=== PATIENT | male | born 1985 | race African-American/Black ===

== ENCOUNTER 2017-04-17 20:32 | Emergency (ER) | payer SELFPAY ==
[~2017-04-17] VITALS: Ht 175.3 cm; Wt 100.0 kg
[2017-04-17 21:17] LABS: BASOPHILS % (AUTO) 0.1 % (0.0-2.0); EOSINOPHILS % (AUTO) 0 % (1.0-6.0); HEMATOCRIT 45.4 % (41-53); HEMOGLOBIN 15.2 g/dL (13.5-17.5); LYMPHOCYTES # (AUTO) 0.8 K/uL (1.0-4.8); LYMPHOCYTES % (AUTO) 4.8 % (22.0-44.0); MEAN CORPUSCULAR HGB CONC 33.5 G/dL (31.0-37.0); MEAN CORPUSCULAR VOLUME 90 fL (80-100); MONOCYTES # (AUTO) 0.1 K/uL (0.1-1.0); MONOCYTES % (AUTO) 0.7 % (2.0-9.0); NEUTROPHILS # (AUTO) 15.2 K/uL (1.8-7.7); RED BLOOD CELL COUNT(AUTO) 5.07 MIL/uL (4.50-5.90); RED CELL DISTRIBUTION WIDTH 14.2 % (11.5-14.5); WHITE BLOOD COUNT (AUTO) 16.1 K/uL (4.5-11.0)
[2017-04-17 21:27] LABS: NEUTROPHILS % (AUTO) 94.4 % (40.0-70.0)
[2017-04-17] MEDS ORDERED: ONDANSETRON HCL 4 MG/2 ML VIAL IVP ONE (21:30)
[2017-04-17] MEDS ORDERED: MORPHINE SULFATE 10 MG/ML SYRINGE IVP ONE (21:30)
[2017-04-17] MEDS ORDERED: DONNATAL/LIDOCAINE/MAALOX 55 ML BOTTLE PO ONE (21:30)
[2017-04-17] MEDS ORDERED: PANTOPRAZOLE SODIUM 40 MG/VIAL IVP ONE (21:30)
[2017-04-17] MEDS ORDERED: SODIUM CHLORIDE 0.9% 1,000 ML IV ONE (21:30)
[2017-04-17 21:35] LABS: ANION GAP 11 mmol/L (8-16); CALCIUM, TOTAL 10.1 mg/dL (8.8-10.5); CARBON DIOXIDE 26 mmol/L (22-29); CHLORIDE 104 mmol/L (98-107); CREATININE 1.42 mg/dL (0.60-1.30); GLOMERULAR FILTR. RATE CALC > 60 mL/min (>60); POTASSIUM 4.4 mmol/L (3.5-5.1); SODIUM SERUM 141 mmol/L (136-145); UREA NITROGEN, BLOOD 15 mg/dL (7-18)
[2017-04-17 21:41] LABS: ALANINE AMINOTRANSFERASE 38 U/L (12-78); ASPARTATE AMINOTRANSFERASE 23 U/L (15-37); BILIRUBIN,TOTAL 0.9 mg/dL (0.1-1.0); TOTAL PROTEIN, SERUM 8.3 g/dL (6.4-8.2)
[2017-04-17 21:55] LABS: PLATELET COUNT (AUTO) 100 K/uL (150-450)
[2017-04-17] MEDS ORDERED: BARIUM SULFATE 0.1% SUSPENSION 450 ML BOTTLE PO ONE (22:45)
[2017-04-17] MEDS ORDERED: IOVERSOL 350 MG/ML 100 ML VIAL ONE (23:48)
[2017-04-18 02:21] VITALS: BP 113/84
== END 2017-04-18 03:01 | disposition home or self-care (01) ==
LOC: EMS 20:35
DX: R10.84 Generalized abdominal pain (principal); K56.1 Intussusception; D18.09 Hemangioma of other sites; N18.9 Chronic kidney disease, unspecified; D72.829 Elevated white blood cell count, unspecified; F12.929 Cannabis use, unspecified with intoxication, unspecified; R11.10 Vomiting, unspecified; F17.210 Nicotine dependence, cigarettes, uncomplicated
CPT/HCPCS: 36415; 74177; 80053; 83690; 85025; 96361; 96374; 96375; 99285; C9113; J2270; J2405; J7030; Q9967; Z7610 ×2

== ENCOUNTER 2020-02-16 09:18 | Emergency (ER) | payer OTHER ==
[~2020-02-16] VITALS: Ht 175.3 cm; Wt 72.7 kg
[2020-02-16] MEDS ORDERED: SODIUM CHLORIDE 0.9% 1,000 ML ONE (09:41)
[2020-02-16] MEDS ORDERED: SODIUM CHLORIDE 0.9% 1,000 ML IV ONE (09:45)
[2020-02-16 10:04] VITALS: BP 123/56
[2020-02-16] MEDS ORDERED: DiphenhydrAMINE HCL 50 MG/ML VIAL IVP ONE (10:15)
[2020-02-16] MEDS ORDERED: HALOPERIDOL LACTATE 5 MG/ML VIAL IVP ONE (10:15)
[2020-02-16 10:20] LABS: BASOPHILS % (AUTO) 0.3 % (0.0-2.0); EOSINOPHILS % (AUTO) 0 % (1.0-6.0); HEMATOCRIT 44.6 % (41-53); LYMPHOCYTES # (AUTO) 1.9 K/uL (1.0-4.8); LYMPHOCYTES % (AUTO) 18.4 % (22.0-44.0); MEAN CORPUSCULAR HEMOGLOBIN 30.3 pg (26.0-34.0); MEAN CORPUSCULAR HGB CONC 33.7 G/dL (31.0-37.0); MEAN CORPUSCULAR VOLUME 90 fL (80-100); MONOCYTES # (AUTO) 0.7 K/uL (0.1-1.0); MONOCYTES % (AUTO) 6.6 % (2.0-9.0); NEUTROPHILS # (AUTO) 7.7 K/uL (1.8-7.7); NEUTROPHILS % (AUTO) 74.7 % (40.0-70.0); PLATELET COUNT (AUTO) 200 K/uL (150-450); RED BLOOD CELL COUNT(AUTO) 4.95 MIL/uL (4.50-5.90); RED CELL DISTRIBUTION WIDTH 13.3 % (11.5-14.5)
[2020-02-16 10:31] LABS: ANION GAP 14 mmol/L (8-16); CALCIUM, TOTAL 9.7 mg/dL (8.8-10.5); CARBON DIOXIDE 22 mmol/L (22-29); CHLORIDE 100 mmol/L (98-107); CREATININE 1.38 mg/dL (0.60-1.30); GLOMERULAR FILTR. RATE CALC > 60 mL/min (>60); GLUCOSE,RANDOM 104 mg/dL (70-110); POTASSIUM 4.1 mmol/L (3.5-5.1); SODIUM SERUM 136 mmol/L (136-145); UREA NITROGEN, BLOOD 15 mg/dL (7-18)
[2020-02-16 10:41] LABS: ALANINE AMINOTRANSFERASE 30 U/L (12-78); ALBUMIN 4.4 g/dL (3.4-5.0); ALKALINE PHOSPHATASE 114 U/L (46-116); ASPARTATE AMINOTRANSFERASE 23 U/L (15-37); BILIRUBIN,TOTAL 0.9 mg/dL (0.1-1.0); LIPASE 44 U/L (73-393); TOTAL PROTEIN, SERUM 7.2 g/dL (6.4-8.2)
[2020-02-16 10:44] LABS: PLATELET MORPHOLOGY COMMENT GIANT PLTS PRESENT
== END 2020-02-16 10:30 | disposition left against medical advice (07) ==
LOC: EMS 09:19
DX: F12.188 Cannabis abuse with other cannabis-induced disorder (principal); R11.2 Nausea with vomiting, unspecified; F41.9 Anxiety disorder, unspecified; F17.210 Nicotine dependence, cigarettes, uncomplicated; I10 Essential (primary) hypertension
CPT/HCPCS: 36415; 80053; 83690; 85025; 93005; 96361; 96374; 96375; 99284; 99406; J1200; J1630; J7030

== ENCOUNTER 2023-06-13 07:41 | Emergency (ER) | payer OTHER ==
[~2023-06-13] VITALS: Ht 175.3 cm; Wt 72.7 kg
[2023-06-13 07:45] VITALS: BP 122/70; PULSE 100; RESP 20; TEMP 98.6
[2023-06-13] MEDS: SODIUM CHLORIDE 0.9% 1,000 ML IV ONE (08:23)
[2023-06-13] MEDS: ONDANSETRON HCL 4 MG/2 ML VIAL IVP ONE (08:23)
[2023-06-13] MEDS: FAMOTIDINE 20 MG/2 ML VIAL IVP ONE (08:24)
[2023-06-13] MEDS: KETOROLAC TROMETHAMINE 30 MG/ML VIAL IVP ONE (08:24)
[2023-06-13] MEDS: MORPHINE SULFATE 2 MG/ML SYRINGE IVP ONE (08:24)
[2023-06-13 08:26] LABS: BASOPHILS % (AUTO) 0.5 % (0.0-2.0); EOSINOPHILS % (AUTO) 0.4 % (1.0-6.0); HEMATOCRIT 45.8 % (41-53); HEMOGLOBIN 15.2 g/dL (13.5-17.5); LYMPHOCYTES # (AUTO) 2.2 K/uL (1.0-4.8); LYMPHOCYTES % (AUTO) 17.4 % (22.0-44.0); MEAN CORPUSCULAR HGB CONC 33.1 G/dL (31.0-37.0); MEAN CORPUSCULAR VOLUME 88 fL (80-100); MONOCYTES # (AUTO) 0.8 K/uL (0.1-1.0); MONOCYTES % (AUTO) 5.9 % (2.0-9.0); NEUTROPHILS # (AUTO) 9.8 K/uL (1.8-7.7); NEUTROPHILS % (AUTO) 75.8 % (40.0-70.0); PLATELET COUNT (AUTO) 156 K/uL (150-450); RED BLOOD CELL COUNT(AUTO) 5.23 MIL/uL (4.50-5.90); WHITE BLOOD COUNT (AUTO) 12.9 K/uL (4.5-11.0)
[2023-06-13] MEDS ORDERED: IOHEXOL 350 MG/ML 100 ML VIAL ONE (08:30)
[2023-06-13] MEDS ORDERED: SODIUM CHLORIDE 0.9% 0 ML ONE (08:30)
[2023-06-13 08:35] LABS: ANION GAP 13 mmol/L (8-16); CALCIUM, TOTAL 9.9 mg/dL (8.8-10.5); CARBON DIOXIDE 27 mmol/L (22-29); CHLORIDE 95 mmol/L (98-107); CREATININE 1.34 mg/dL (0.60-1.30); GLOMERULAR FILTR. RATE CALC > 60 mL/min (>60); GLUCOSE,RANDOM 74 mg/dL (70-110); SODIUM SERUM 135 mmol/L (136-145); UREA NITROGEN, BLOOD 25 mg/dL (7-18)
[2023-06-13 08:37] LABS: ALANINE AMINOTRANSFERASE 45 U/L (12-78); ALBUMIN 5.1 g/dL (3.4-5.0); ALKALINE PHOSPHATASE 116 U/L (46-116); ASPARTATE AMINOTRANSFERASE 28 U/L (15-37); BILIRUBIN,TOTAL 0.8 mg/dL (0.1-1.0); LIPASE 37 U/L (16-77); TOTAL PROTEIN, SERUM 8.3 g/dL (6.4-8.2)
[2023-06-13 08:43] LABS: ALCOHOL, BLOOD (SERUM) < 3 mg/dL (0-10)
[2023-06-13 08:45] LABS: PLATELET MORPHOLOGY COMMENT GIANT PLTS PRESENT
== END 2023-06-13 08:30 | disposition left against medical advice (07) ==
LOC: EMS 07:41
DX: R19.7 Diarrhea, unspecified (principal); R10.32 Left lower quadrant pain; F17.210 Nicotine dependence, cigarettes, uncomplicated; F12.90 Cannabis use, unspecified, uncomplicated; R11.2 Nausea with vomiting, unspecified
CPT/HCPCS: 99284; 80053; 83690; 85025; 36415; 93005; G0480; J3490; J1885; J2270; J2405; J7030; J7050; Q9967

== ENCOUNTER 2024-01-21 08:20 | Emergency (ER) | payer OTHER ==
[2024-01-21] MEDS: PANTOPRAZOLE SODIUM 40 MG/VIAL IVP ONE (08:50)
[2024-01-21] MEDS: SODIUM CHLORIDE 0.9% 1,000 ML IV ONE (08:50)
[2024-01-21] MEDS: HALOPERIDOL LACTATE 5 MG/ML VIAL IVP ONE (09:02)
[2024-01-21] MEDS: KETOROLAC TROMETHAMINE 30 MG/ML VIAL IVP ONE (09:02)
== END 2024-01-21 10:00 | disposition home or self-care (01) ==
LOC: EMS 08:20 → EDBD 08:20 → EMS 10:00
DX: R10.9 Unspecified abdominal pain (principal); R11.2 Nausea with vomiting, unspecified; F17.210 Nicotine dependence, cigarettes, uncomplicated; F12.90 Cannabis use, unspecified, uncomplicated
CPT/HCPCS: 99284; 96361; 96374; 96375; J1630; J1885; C9113; J7030

== ENCOUNTER 2024-04-07 01:18 | Emergency (ER) | payer OTHER ==
[~2024-04-07] VITALS: Ht 175.3 cm; Wt 68.2 kg
[2024-04-07 01:54] VITALS: BP 128/78; PULSE 78; RESP 16; TEMP 98.3; O2SAT 100
[2024-04-07 01:54] LABS: BASOPHILS % (AUTO) 0.2 % (0.0-2.0); EOSINOPHILS % (AUTO) 0.9 % (1.0-6.0); HEMATOCRIT 41.2 % (41-53); HEMOGLOBIN 13.8 g/dL (13.5-17.5); LYMPHOCYTES % (AUTO) 29.1 % (22.0-44.0); MEAN CORPUSCULAR HEMOGLOBIN 30.9 pg (26.0-34.0); MEAN CORPUSCULAR HGB CONC 33.4 G/dL (31.0-37.0); MEAN CORPUSCULAR VOLUME 93 fL (80-100); MONOCYTES # (AUTO) 0.6 K/uL (0.1-1.0); MONOCYTES % (AUTO) 8.8 % (2.0-9.0); NEUTROPHILS # (AUTO) 4.1 K/uL (1.8-7.7); PLATELET COUNT (AUTO) 157 K/uL (150-450); RED BLOOD CELL COUNT(AUTO) 4.46 MIL/uL (4.50-5.90); RED CELL DISTRIBUTION WIDTH 13.3 % (11.5-14.5); WHITE BLOOD COUNT (AUTO) 6.8 K/uL (4.5-11.0)
[2024-04-07 01:57] LABS: ANION GAP 5 mmol/L (8-16); CALCIUM, TOTAL 9.2 mg/dL (8.8-10.5); CARBON DIOXIDE 30 mmol/L (22-29); CHLORIDE 102 mmol/L (98-107); CREATININE 1.52 mg/dL (0.60-1.30); GLOMERULAR FILTR. RATE CALC > 60 mL/min (>60); GLUCOSE,RANDOM 85 mg/dL (70-110); POTASSIUM 4.2 mmol/L (3.5-5.1); SODIUM SERUM 137 mmol/L (136-145); UREA NITROGEN, BLOOD 31 mg/dL (7-18)
[2024-04-07 02:09] LABS: ALCOHOL, BLOOD (SERUM) < 3 mg/dL (0-10)
== END 2024-04-07 02:30 | disposition left against medical advice (07) ==
LOC: EMS 01:18
DX: R45.851 Suicidal ideations (principal); Z53.21 Procedure and treatment not carried out due to patient leaving prior to being seen by health care provider
CPT/HCPCS: 36415; 80048; 85025; G0480

== ENCOUNTER 2024-08-20 17:01 | Emergency (ER) | payer OTHER ==
[~2024-08-20] VITALS: Ht 175.3 cm; Wt 70.4 kg
[2024-08-20 17:25] VITALS: BP 109/75; PULSE 80; RESP 20; TEMP 97.5; O2SAT 96
[2024-08-20] MEDS: CefTRIAXone SODIUM 1 GM/VIAL IM ONE (19:01)
[2024-08-20] MEDS: LIDOCAINE/PF 1% 2 ML VIAL IM ONE (19:01)
[2024-08-20] MEDS: AZITHROMYCIN 500 MG TABLET PO ONE (19:01)
== END 2024-08-20 18:57 | disposition left against medical advice (07) ==
LOC: EMS 17:01
DX: N34.2 Other urethritis (principal); F12.90 Cannabis use, unspecified, uncomplicated; F17.210 Nicotine dependence, cigarettes, uncomplicated
CPT/HCPCS: 99281; Z7502

== ENCOUNTER 2024-11-26 16:08 | Inpatient (IN) | payer OTHER ==
[~2024-11-26] VITALS: Ht 175.3 cm; Wt 64.4 kg
[~2024-11-26 16:08] MED LIST: IBUP-1492 PO
[2024-11-26 17:02] LABS: CALCIUM, TOTAL 8.4 mg/dL (8.8-10.5); CREATININE 1.33 mg/dL (0.60-1.30); GLOMERULAR FILTR. RATE CALC > 60 mL/min (>60); GLUCOSE,RANDOM 74 mg/dL (70-110); SODIUM SERUM 137 mmol/L (136-145); UREA NITROGEN, BLOOD 16 mg/dL (7-18)
[2024-11-26 17:08] LABS: ASPARTATE AMINOTRANSFERASE 29.0 U/L (15-37); TOTAL PROTEIN, SERUM 6.1 g/dL (6.4-8.2)
[2024-11-26 17:36] LABS: PLATELET COUNT (AUTO) 179 K/uL (150-450); RED BLOOD CELL COUNT(AUTO) 3.82 MIL/uL (4.50-5.90); RED CELL DISTRIBUTION WIDTH 13.3 % (11.5-14.5); WHITE BLOOD COUNT (AUTO) 7.7 K/uL (4.5-11.0)
[2024-11-26] MEDS ORDERED: SODIUM CHLORIDE 0.9% 100 ML ONE (17:49)
[2024-11-26] MEDS ORDERED: IOHEXOL 350 MG/ML 100 ML VIAL ONE (17:49)
[2024-11-26] MEDS ORDERED: MAGNESIUM HYDROXIDE SUSPENSION 30 ML UDCUP PO PRN (22:15)
[2024-11-26] MEDS ORDERED: ALBUTEROL SULFATE 2.5 MG/0.5 ML NEB SOLUTION NEB PRN (22:15)
[2024-11-26] MEDS ORDERED: ZOLPIDEM TARTRATE 5 MG TABLET PO PRN (22:15)
[2024-11-26] MEDS ORDERED: IPRATROPIUM BROMIDE 0.5 MG/2.5 ML NEB SOLUTION NEB PRN (22:15)
[2024-11-26] MEDS ORDERED: BISACODYL 10 MG RECTAL RECTAL SUPPOSITORY PR PRN (22:15)
[2024-11-26] MEDS: HEPARIN SODIUM,PORCINE 5,000 UNITS/ML VIAL SQ SCH (23:03)
[2024-11-27 00:40] VITALS: BP 140/90; PULSE 74; RESP 18; TEMP 97.7; O2SAT 100
[2024-11-27] MEDS: ONDANSETRON HCL 4 MG/2 ML VIAL IVP PRN (02:23)
[2024-11-27] MEDS: MORPHINE SULFATE 2 MG/ML SYRINGE IVP PRN (02:32)
[2024-11-27 02:50] VITALS: BP 137/95; PULSE 87; RESP 20; TEMP 97.7; O2SAT 100
[2024-11-27] MEDS: DEXTROSE 5%-0.45% SODIUM CHL 1,000 ML IV SCH (04:12)
[2024-11-27 04:20] VITALS: BP 143/105; PULSE 73; RESP 18; TEMP 97.7; O2SAT 100
[2024-11-27] MEDS: HYDROCODONE/ACETAMINOPHEN 5-325 MG TABLET PO PRN (04:21)
[2024-11-27] MEDS: DOCUSATE SODIUM 100 MG CAPSULE PO SCH (08:51)
[2024-11-27] MEDS: ACETAMINOPHEN 325 MG TABLET PO PRN (08:51)
[2024-11-27] MEDS: PANTOPRAZOLE SODIUM 40 MG/VIAL IVP SCH (08:51)
[2024-11-27 09:22] VITALS: BP 125/92; PULSE 60; RESP 18; TEMP 97.7; O2SAT 98
[2024-11-27 18:04] LABS: APPEARANCE,URINE TURBID (CLEAR); GLUCOSE, URINE (UA) NEGATIVE (NEGATIVE); LEUKOCYTE ESTERASE ,URINE SMALL (NEGATIVE); NITRATE,URINE NEGATIVE (NEGATIVE); OCCULT BLOOD,URINE LARGE (NEGATIVE); SPECIFIC GRAVITIY, URINE 1.013 (1.003-1.030)
[2024-11-27 18:21] LABS: SQUAMOUS EPITHELIAL CELL,UR Few /LPF (None Seen)
[2024-11-27 20:00] VITALS: BP 126/85; PULSE 68; RESP 18; TEMP 97.7; O2SAT 99
[2024-11-28 05:00] VITALS: BP 114/77; PULSE 67; RESP 18; TEMP 97.7; O2SAT 97
[2024-11-28 07:23] LABS: PLATELET COUNT (AUTO) 237 K/uL (150-450); RED BLOOD CELL COUNT(AUTO) 3.67 MIL/uL (4.50-5.90); RED CELL DISTRIBUTION WIDTH 13.2 % (11.5-14.5); WHITE BLOOD COUNT (AUTO) 5.0 K/uL (4.5-11.0)
[2024-11-28 07:41] LABS: ASPARTATE AMINOTRANSFERASE 21 U/L (15-37); CALCIUM, TOTAL 7.5 mg/dL (8.8-10.5); CREATININE 1.11 mg/dL (0.60-1.30); GLOMERULAR FILTR. RATE CALC > 60 mL/min (>60); GLUCOSE,RANDOM 111 mg/dL (70-110); SODIUM SERUM 135 mmol/L (136-145); TOTAL PROTEIN, SERUM 5.2 g/dL (6.4-8.2); UREA NITROGEN, BLOOD 10 mg/dL (7-18)
[2024-11-28 08:49] VITALS: BP 115/81; PULSE 64; RESP 18; TEMP 98; O2SAT 99
[2024-11-28] MEDS ORDERED: MELA5TAB40 PO (16:18)
[2024-11-28] MEDS ORDERED: LACT10SO85 PO (16:18)
[2024-11-28] MEDS ORDERED: ALBU18HF12 IH (16:18)
[2024-11-28] MEDS ORDERED: PEG4000S7 PO ×2 (16:18→16:41)
[2024-11-28] MEDS ORDERED: [UNRECOGNIZED DRUG - CODE] PO (16:18)
[2024-11-28] MEDS ORDERED: FAMO20 PO (16:18)
[2024-11-28] MEDS ORDERED: LURA40TA2 PO (16:18)
[2024-11-28] MEDS ORDERED: DOCU-385 PO (16:18)
== END 2024-11-28 18:05 | DRG 641 ==
LOC: EMS 16:12 → EDH 22:12 → 6S 11-27 00:42
PROVIDERS: ADMIT Hospitalist; ATTEND Hospitalist
DX: E87.5 Hyperkalemia (principal); F31.9 Bipolar disorder, unspecified; F20.9 Schizophrenia, unspecified; F12.90 Cannabis use, unspecified, uncomplicated; R10.84 Generalized abdominal pain; F17.210 Nicotine dependence, cigarettes, uncomplicated; R16.0 Hepatomegaly, not elsewhere classified; Z85.028 Personal history of other malignant neoplasm of stomach; Z85.038 Personal history of other malignant neoplasm of large intestine
CPT/HCPCS: 74177; 80048; 80053; 80076; 81001; 82105; 83690; 85025; 87081; 93005; 99285; G0378; J1644; J2270; J2405; J2470; J7050

== ENCOUNTER 2025-03-17 19:36 | Inpatient (IN) | payer OTHER ==
[~2025-03-17] VITALS: Ht 175.3 cm; Wt 68.1 kg
[~2025-03-17 19:36] MED LIST changes: +ALBU18HF12 IH; +DOCU-385 PO; +FAMO20 PO; -IBUP-1492 PO; +LACT10SO85 PO; +LURA40TA2 PO; +MELA5TAB40 PO; +PEG4000S7 PO; +[UNRECOGNIZED DRUG - CODE] PO
[2025-03-17 20:30] LABS: PLATELET COUNT (AUTO) 234 K/uL (150-450); RED BLOOD CELL COUNT(AUTO) 4.14 MIL/uL (4.50-5.90); RED CELL DISTRIBUTION WIDTH 14.8 % (11.5-14.5); WHITE BLOOD COUNT (AUTO) 7.4 K/uL (4.5-11.0)
[2025-03-17 20:35] LABS: CALCIUM, TOTAL 9.0 mg/dL (8.8-10.5); CREATININE 1.39 mg/dL (0.60-1.30); GLOMERULAR FILTR. RATE CALC > 60 mL/min (>60); GLUCOSE,RANDOM 91 mg/dL (70-110); SODIUM SERUM 141 mmol/L (136-145); UREA NITROGEN, BLOOD 19 mg/dL (7-18)
[2025-03-17 20:40] LABS: ASPARTATE AMINOTRANSFERASE 31.0 U/L (15-37); TOTAL PROTEIN, SERUM 7.4 g/dL (6.4-8.2)
[2025-03-17] MEDS ORDERED: IOHEXOL 300 MG/ML 100 ML VIAL ONE (23:12)
[2025-03-17] MEDS ORDERED: SODIUM CHLORIDE 0.9% 100 ML ONE (23:12)
[2025-03-17] MEDS: SODIUM CHLORIDE 0.9% 1,000 ML IV ONE (23:17)
[2025-03-17] MEDS: ONDANSETRON HCL 4 MG/2 ML VIAL IVP ONE (23:18)
[2025-03-17] MEDS: MORPHINE SULFATE 4 MG/ML SYRINGE IVP ONE (23:18)
[2025-03-18] MEDS: MORPHINE SULFATE 4 MG/ML SYRINGE IVP ONE (01:59)
[2025-03-18] MEDS: ONDANSETRON HCL 4 MG/2 ML VIAL IVP ONE (02:00)
[2025-03-18] MEDS ORDERED: NALOXONE HCL 1 MG/ML 2 ML SYRINGE IVP PRN (03:00)
[2025-03-18] MEDS: DEXTROSE 5%-LACTATED RINGERS 1,000 ML IV SCH (03:39)
[2025-03-18 08:20] VITALS: BP 102/71; PULSE 50; RESP 19; TEMP 97.9; O2SAT 98
[2025-03-18] MEDS: MORPHINE SULFATE 4 MG/ML SYRINGE IVP PRN (09:15)
[2025-03-18 10:00] LABS: APPEARANCE,URINE CLEAR (CLEAR); GLUCOSE, URINE (UA) NEGATIVE (NEGATIVE); LEUKOCYTE ESTERASE ,URINE NEGATIVE (NEGATIVE); NITRATE,URINE NEGATIVE (NEGATIVE); OCCULT BLOOD,URINE NEGATIVE (NEGATIVE); SPECIFIC GRAVITIY, URINE 1.046 (1.003-1.030)
[2025-03-18] MEDS: ENOXAPARIN SODIUM 40 MG/0.4 ML PF SYRINGE SQ SCH (10:05)
[2025-03-18] MEDS ORDERED: INFLUENZA VIRUS VACCINE TVS (6MO+) 2025-26/PF 45 MCG/0.5 ML SYRINGE IM. ONE (10:15)
[2025-03-18] MEDS: NICOTINE POLACRILEX 2 MG GUM CHEW PRN (15:14)
[2025-03-18 16:14] LABS: CALCIUM, TOTAL 9.7 mg/dL (8.8-10.5); CREATININE 1.28 mg/dL (0.60-1.30); GLOMERULAR FILTR. RATE CALC > 60 mL/min (>60); GLUCOSE,RANDOM 114 mg/dL (70-110); SODIUM SERUM 142 mmol/L (136-145); UREA NITROGEN, BLOOD 16 mg/dL (7-18)
[2025-03-18 20:00] VITALS: BP 94/60; PULSE 76; RESP 18; TEMP 99; O2SAT 99
[2025-03-19 04:08] VITALS: BP 94/60; PULSE 65; RESP 17; TEMP 98.1; O2SAT 99
[2025-03-19 06:41] LABS: PLATELET COUNT (AUTO)-OB 176 K/uL (150-450); RED BLOOD CELL COUNT(AUTO) 3.76 MIL/uL (4.50-5.90); RED CELL DISTRIBUTION WIDTH 14.5 % (11.5-14.5); WHITE BLOOD COUNT (AUTO) 5.2 K/uL (4.5-11.0)
[2025-03-19 07:23] LABS: CALCIUM, TOTAL 9.2 mg/dL (8.8-10.5); CREATININE 1.06 mg/dL (0.60-1.30); GLOMERULAR FILTR. RATE CALC > 60 mL/min (>60); GLUCOSE,RANDOM 93 mg/dL (70-110); SODIUM SERUM 140 mmol/L (136-145); UREA NITROGEN, BLOOD 9 mg/dL (7-18)
[2025-03-19 08:28] VITALS: BP 102/80; PULSE 72; RESP 18; TEMP 98.2; O2SAT 99
[2025-03-19] MEDS: MIRTAZAPINE 15 MG TABLET PO SCH (12:12)
[2025-03-19 12:42] VITALS: BP 144/97; PULSE 80; RESP 18; TEMP 98.6; O2SAT 99
[2025-03-19] MEDS ORDERED: MIRT7.5T11 PO (15:09)
[2025-03-19] MEDS ORDERED: OLAN10TA74 PO (15:09)
[2025-03-19] MEDS ORDERED: DOXY25TA PO (15:09)
[2025-03-19 19:40] VITALS: BP 105/75; PULSE 72; RESP 18; TEMP 97.7; O2SAT 99
[2025-03-20 04:05] VITALS: BP 125/89; PULSE 66; RESP 18; TEMP 97.5; O2SAT 98
[2025-03-20 08:53] VITALS: BP 118/78; PULSE 66; RESP 18; TEMP 97.9; O2SAT 99
== END 2025-03-20 15:00 | DRG 438 ==
LOC: EMS 19:36 → EDH 03-18 02:57 → 4S 03-18 08:30
PROVIDERS: ADMIT Internal Medicine; ATTEND Internal Medicine
DX: K85.90 Acute pancreatitis without necrosis or infection, unspecified (principal); N17.0 Acute kidney failure with tubular necrosis; F32.A Depression, unspecified; F20.9 Schizophrenia, unspecified; E80.6 Other disorders of bilirubin metabolism; Z85.038 Personal history of other malignant neoplasm of large intestine; Z87.891 Personal history of nicotine dependence; Z79.899 Other long term (current) drug therapy
CPT/HCPCS: 74177; 80048; 80076; 81003; 83690; 83735; 85025; 96361; 96374; 96375; 96376; 99285; G0378; J1650; J2270; J2405; J7030; J7050; Q9967; 36415-L1; 36415-TC

== ENCOUNTER 2025-03-28 09:11 | Inpatient (IN) | payer MEDICAID, OTHER ==
[~2025-03-28] VITALS: Ht 175.3 cm; Wt 67.2 kg
[~2025-03-28 09:11] MED LIST changes: -LACT10SO85 PO; -LURA40TA2 PO; +MIRT7.5T11 PO; +OLAN10TA74 PO; -PEG4000S7 PO; -[UNRECOGNIZED DRUG - CODE] PO
[2025-03-28 10:13] LABS: PLATELET COUNT (AUTO) 177 K/uL (150-450); RED BLOOD CELL COUNT(AUTO) 4.20 MIL/uL (4.50-5.90); RED CELL DISTRIBUTION WIDTH 15.2 % (11.5-14.5); WHITE BLOOD COUNT (AUTO) 9.3 K/uL (4.5-11.0)
[2025-03-28] MEDS: ONDANSETRON HCL 4 MG/2 ML VIAL IVP ONE (10:19)
[2025-03-28] MEDS: SODIUM CHLORIDE 0.9% 2,000 ML IV ONE (10:19)
[2025-03-28] MEDS: KETOROLAC TROMETHAMINE 30 MG/ML VIAL IVP ONE (10:19)
[2025-03-28] MEDS: MORPHINE SULFATE 4 MG/ML SYRINGE IVP ONE (10:19)
[2025-03-28 10:21] LABS: CALCIUM, TOTAL 9.5 mg/dL (8.8-10.5); CREATININE 1.20 mg/dL (0.60-1.30); GLOMERULAR FILTR. RATE CALC > 60 mL/min (>60); GLUCOSE,RANDOM 115 mg/dL (70-110); SODIUM SERUM 138 mmol/L (136-145); UREA NITROGEN, BLOOD 16 mg/dL (7-18)
[2025-03-28 10:28] LABS: TROPONIN I-HIGH SENSITIVITY 8 ng/L (<76)
[2025-03-28] MEDS ORDERED: ONDANSETRON HCL 4 MG/2 ML VIAL IVP PRN (11:30)
[2025-03-28] MEDS ORDERED: ZOLPIDEM TARTRATE 5 MG TABLET PO PRN (11:30)
[2025-03-28] MEDS ORDERED: MAGNESIUM HYDROXIDE SUSPENSION 30 ML UDCUP PO PRN (11:30)
[2025-03-28] MEDS: SODIUM CHLORIDE 0.9% 1,000 ML IV SCH (11:56)
[2025-03-28] MEDS ORDERED: MIRT-89 PO (12:06)
[2025-03-28 12:43] VITALS: BP 156/100; PULSE 64; RESP 18; TEMP 98.1; O2SAT 100
[2025-03-28] MEDS: MORPHINE SULFATE 4 MG/ML SYRINGE IVP PRN (15:34)
[2025-03-28 20:36] VITALS: BP 153/105; PULSE 73; RESP 18; TEMP 98.1; O2SAT 100
[2025-03-28] MEDS: DOCUSATE SODIUM 100 MG CAPSULE PO SCH (20:58)
[2025-03-28] MEDS: MIRTAZAPINE 15 MG TABLET PO SCH (20:58)
[2025-03-28 21:59] VITALS: BP 160/103; PULSE 73
[2025-03-29 00:36] VITALS: BP 115/77; PULSE 81
[2025-03-29 05:44] VITALS: BP 102/72; PULSE 77; RESP 18; TEMP 98.6; O2SAT 98
[2025-03-29 06:34] LABS: APPEARANCE,URINE CLEAR (CLEAR); GLUCOSE, URINE (UA) NEGATIVE (NEGATIVE); LEUKOCYTE ESTERASE ,URINE NEGATIVE (NEGATIVE); NITRATE,URINE NEGATIVE (NEGATIVE); OCCULT BLOOD,URINE NEGATIVE (NEGATIVE); PH,URINE DRUG SCREEN 6.5 (5.0-8.0); SPECIFIC GRAVITIY, URINE 1.018 (1.003-1.030)
[2025-03-29 06:42] LABS: ALCOHOL, URINE DRUG SCREEN NEGATIVE (NEGATIVE); AMPHET/METH SCREEN,URINE NEGATIVE (NEGATIVE); BARBITURATE SCREEN, URINE NEGATIVE (NEGATIVE); CANNABINOID SCREEN,URINE NEGATIVE (NEGATIVE); COCAINE SCREEN,URINE NEGATIVE (NEGATIVE); METHADONE SCREEN, URINE NEGATIVE (NEGATIVE)
[2025-03-29 07:23] VITALS: BP 107/74; PULSE 65; RESP 18; TEMP 98.1; O2SAT 99
[2025-03-29] MEDS: PANTOPRAZOLE SODIUM 40 MG/VIAL IVP SCH (08:47)
[2025-03-29] MEDS ORDERED: MELATONIN 5 MG TABLET PO PRN (10:30)
[2025-03-29] MEDS: PALIPERIDONE 6 MG ER TABLET PO SCH (11:33)
[2025-03-29 11:36] VITALS: BP 141/95; PULSE 78; RESP 16; O2SAT 100
[2025-03-29 20:00] VITALS: BP 95/65; PULSE 80; RESP 18; TEMP 98.6; O2SAT 98
[2025-03-29] MEDS: ACETAMINOPHEN 325 MG TABLET PO PRN (20:03)
[2025-03-30 04:00] VITALS: BP 99/68; PULSE 74; RESP 18; TEMP 98.1; O2SAT 96
[2025-03-30 08:00] VITALS: BP 102/68; PULSE 80; RESP 19; TEMP 98.1; O2SAT 100
[2025-03-30 08:43] VITALS: BP 107/78; PULSE 81; RESP 16; O2SAT 100
[2025-03-30 19:44] VITALS: BP 108/68; PULSE 93; RESP 18; TEMP 98; O2SAT 100
[2025-03-31 05:03] VITALS: BP 99/61; PULSE 66; RESP 17; TEMP 97.9; O2SAT 99
[2025-03-31 08:15] VITALS: BP 99/68; PULSE 73; RESP 20; TEMP 98.2; O2SAT 100
[2025-03-31] MEDS ORDERED: PALI6TAB15 PO (11:41)
[2025-03-31] MEDS ORDERED: MAGN-169 PO (11:42)
[2025-03-31] MEDS ORDERED: ACET-2247 PO (11:42)
[2025-03-31 12:49] VITALS: BP 97/62; PULSE 85; RESP 18; TEMP 98.4; O2SAT 99
[2025-03-31 20:01] VITALS: BP 90/63; PULSE 89; RESP 16; TEMP 98.1; O2SAT 100
[2025-04-01 00:10] VITALS: BP 104/67; PULSE 77; RESP 17
== END 2025-04-01 11:40 | DRG 440 ==
LOC: EMS 09:11 → EDH 11:18 → 4S 12:43
PROVIDERS: ADMIT Internal Medicine; ATTEND Internal Medicine
PROC: GZ58ZZZ Individual Psychotherapy, Cognitive-Behavioral (ICD-10-PCS; principal; 2025-03-29)
PROC: GZ56ZZZ Individual Psychotherapy, Supportive (ICD-10-PCS; 2025-03-29)
DX: K85.90 Acute pancreatitis without necrosis or infection, unspecified (principal); F25.1 Schizoaffective disorder, depressive type; F32.A Depression, unspecified; J45.909 Unspecified asthma, uncomplicated; T43.595A Adverse effect of other antipsychotics and neuroleptics, initial encounter; Z85.038 Personal history of other malignant neoplasm of large intestine; Z87.891 Personal history of nicotine dependence; Z79.899 Other long term (current) drug therapy; Y92.89 Other specified places as the place of occurrence of the external cause
CPT/HCPCS: 71260; 72193; 74160; 80048; 80307; 81001; 83690; 84478; 84484; 85025; 87081; 93005; 96361; 96374; 96375; 99285; G0378; J1630; J1885; J2270; J2405; J2470; J7030; 36415-L1; 36415-TC